=== PATIENT | female | born 1990 | race Caucasian/White ===

== ENCOUNTER → 2023-03-18 08:14 | Outpatient (REF) | payer OTHER, SELFPAY | LOC: PNTC 08:14 | PROVIDERS: ATTENDING PHYSICIAN Obstetrics & Gynecology | DX: O09.90 Supervision of high risk pregnancy, unspecified, unspecified trimester (principal); O09.219 Supervision of pregnancy with history of pre-term labor, unspecified trimester | CPT/HCPCS: 76811; 76817 ==

== ENCOUNTER 2023-06-23 14:03 | Outpatient (RCR) | payer OTHER, SELFPAY | END 2023-06-23 23:59 | disposition home or self-care (01) | LOC: RPT 14:03 | PROVIDERS: FAMILY PHYSICIAN Physician Assistant | DX: M62.89 Other specified disorders of muscle (principal); O26.893 Other specified pregnancy related conditions, third trimester; R10.2 Pelvic and perineal pain; Z73.6 Limitation of activities due to disability | CPT/HCPCS: 97112; 97162; 97530 ==

== ENCOUNTER 2023-09-16 06:25 | Outpatient (RCR) | payer OTHER, SELFPAY | END 2023-09-16 23:59 | disposition home or self-care (01) | LOC: RPT 06:25 | PROVIDERS: ATTENDING PHYSICIAN Obstetrics & Gynecology; FAMILY PHYSICIAN Physician Assistant | DX: M62.89 Other specified disorders of muscle (principal); R10.2 Pelvic and perineal pain; Z73.6 Limitation of activities due to disability | CPT/HCPCS: 97140; 97162; 97530 ==